=== PATIENT | female | born 1995 | race African-American/Black ===

== ENCOUNTER 2018-06-08 13:48 | Emergency (ER) | payer OTHER ==
[2018-06-08 14:19] VITALS: BP 125/86
--- NOTE | 2018-06-08 15:00 | UC ---
Skin Complaint HPI - HPI Summary HPI Summary: 4 weeks of waxing and waning rash both axilla, neck and face. Mildly pruritic, numer small papules, resulting in some hyperpigmentation in the axilla. Deoderant stings, parminder water relieves but has not faded altogether at any point. - History of Current Complaint Chief Complaint: UCSkin Time Seen by Provider: 06/08/18 14:34 Stated Complaint: SKIN CONCERN (UNDERARMS,FACE,NECK) Hx Obtained From: Patient Hx Last Menstrual Period: 05/19/18 ?: No Onset/Duration: Gradual Onset, Lasting Weeks Timing: Constant Onset Severity: Moderate Current Severity: Moderate Pain Intensity: 0 Aggravating Factor(s): Touch Alleviating Factor(s): OTC Creams/Salves Associated Signs & Symptoms: Positive: Negative - Allergy/Home Medications Allergies/Adverse Reactions: Allergies Allergy/AdvReac Type Severity Reaction Status Date / Time No Known Allergies Allergy Verified 06/08/18 14:19 Review of Systems Constitutional: Negative Skin: Rash Eyes: Negative ENT: Negative Respiratory: Negative Cardiovascular: Negative Gastrointestinal: Negative Genitourinary: Negative Motor: Negative Neurovascular: Negative Musculoskeletal: Negative Neurological: Negative Psychological: Negative Is Patient Immunocompromised?: No All Other Systems Reviewed And Are Negative: Yes PMH/Surg Hx/FS Hx/Imm Hx Previously Healthy: Yes - Surgical History Surgical History: None - Family History Known Family History: Positive: Diabetes, Other - breast cancer--mother - Social History Occupation: Student Lives: With Family Alcohol Use: None Substance Use Type: None Smoking Status (MU): Never Smoked Tobacco - Immunization History Most Recent Influenza Vaccination: FALL 2013 Vaccination Up to Date: Yes Physical Exam Triage Information Reviewed: Yes Appearance: Well-Appearing Vital Signs: Initial Vital Signs Temp 98.0 F 06/08/18 14:14 Pulse 64 06/08/18 14:14 Resp 20 06/08/18 14:14 BP 125/86 06/08/18 14:14 Pulse Ox 100 06/08/18 14:14 ENT Exam: Normal Dental Exam: Normal Neck: Positive: Supple, Nontender, No Lymphadenopathy Respiratory: Positive: Lungs clear, Normal breath sounds Cardiovascular: Positive: RRR, No Murmur Neurological Exam: Normal Skin Exam: Other - face with numerous small papules across temples, forehead, upper and lower eyelids with mild erythema under the eyes. + small follicles in nasal ala, upper lip, ++ over neck, almost confluent in axilla with some patchy hyperpigmentation Course/Dx - Course Course Of Treatment: doxy for folliculitis treatment. - Differential Diagnoses - Skin Complaint Differential Diagnoses: Contact Dermatitis, Local Allergic Reaction, Other - folliculitis - Diagnoses Provider Diagnoses: folliculitis, periorbital dermatitis Discharge - Sign-Out/Discharge Documenting (check all that apply): Patient Departure - Discharge Plan Condition: Stable Disposition: HOME Prescriptions: DOXYcycline CAP(*) [DOXYcycline 100MG CAP(*)] 100 mg PO BID #28 cap Patient Education Materials: Folliculitis (ED) Referrals: Cally Briscoe MD [Primary Care Provider] - April Martin [Medical Doctor] - Additional Instructions: Use doxycyclin 100mg twice daily for 2 weeks, being aware that you will be more prone to sunburn during that time. Ensure that you are using sun protection. The antibiotic can cause gi upset; it can be taken with food (no dairy). - Billing Disposition and Condition Condition: STABLE Disposition: Home
== END 2018-06-08 15:11 | disposition home or self-care (01) ==
LOC: UCCORT 13:48
DX: L73.9 Follicular disorder, unspecified (principal); L30.8 Other specified dermatitis
CPT/HCPCS: 99201; G0463

== ENCOUNTER 2018-06-28 12:41 | Emergency (ER) | payer OTHER ==
[2018-06-28 13:16] VITALS: BP 116/50
--- NOTE | 2018-06-28 13:40 | ED ---
Skin Complaint - HPI Summary HPI Summary: 22-year-old female with history of folliculitis recently completed 2 weeks of doxycycline presents with persistent itchiness and mild redness of axillary areas bilaterally. No pus drainage. Patient has seen improvement of other areas of skin with medication, but has persistent itchiness in the axilla. Denies any fevers, pain, or prior episodes. Denies any worsening or remitting factors. Approximately one week duration. Located in bilateral axillary areas. - History of Current Complaint Chief Complaint: UCSkin Time Seen by Provider: 06/28/18 13:17 Stated Complaint: RECHECK SKIN COMPLAINT Hx Last Menstrual Period: 06/21/18 Skin Exposure Onset/Duration: Weeks Ago Timing: Constant Onset Severity: Mild Current Severity: Mild Pain Intensity: 0 Skin Location: Other: - Bilateral axilla Character: Pruritus Aggravating Symptom(s): Nothing Alleviating Symptom(s): Nothing - Allergy/Home Medications Allergies/Adverse Reactions: Allergies Allergy/AdvReac Type Severity Reaction Status Date / Time No Known Allergies Allergy Verified 06/28/18 13:06 Home Medications: Home Medications Levonorgestrel (Iud) [Mirena IUD] 20 mcg IU 06/28/18 [History] PMH/Surg Hx/FS Hx/Imm Hx Previously Healthy: Yes Infectious Disease History: No Infectious Disease History: Denies: Traveled Outside the [place] in Last 30 Days - Family History Known Family History: Positive: Diabetes, Other - breast cancer--mother Family History: Positive family history of eczema - Social History Alcohol Use: None Substance Use Type: Reports: None Smoking Status (MU): Never Smoked Tobacco Review of Systems Positive: Other - itchiness of axilla bilaterally as noted in history of present illness All Other Systems Reviewed And Are Negative: Yes Physical Exam - Summary Physical Exam Summary: Gen: alert, in no acute distress HEENT: EOMI, normocephalic, atruamatic Neck: supple, no masses CV: Normal s1 s2, no murmurs Resp: normal breath sounds b/l GI: no tenderness, no masses Musculoskeletal: normal ROM all 4 extremities Skin: Mild erythema of axilla b/l, discrete scaly itchy patches of skin consistent with possible eczema Lymph: no lymphadenopathy Psych: appropriate affect, oriented Vital Signs On Initial Exam: Initial Vitals Temp Pulse Resp BP Pulse Ox 36.4 C 74 17 116/50 100 06/28/18 13:09 08/29/18 13:09 06/28/18 13:09 06/28/18 13:09 06/28/18 13:09 Diagnostics - Vital Signs Vital Signs Temp Pulse Resp BP Pulse Ox 06/28/18 13:09 36.4 C 74 17 116/50 100 - Laboratory Lab Statement: Any lab studies that have been ordered have been reviewed, and results considered in the medical decision making process. Course/Dx - Course Course Of Treatment: Patient has itchy scaly patches of skin possibly due to eczema, patient prescribed steroid cream and instructed to follow up with corrective therapist. Agrees to and understands discharge instructions. No evidence of infection. No evidence of hidradenitis. - Diagnoses Provider Diagnoses: Eczema Discharge - Sign-Out/Discharge Documenting (check all that apply): Patient Departure All imaging exams completed and their final reports reviewed: No Studies - Discharge Plan Condition: Stable Disposition: HOME Prescriptions: Triamcinolone 0.1% CREAM (NF) [Kenalog 0.1% Cream (NF)] 1 applic TOPICAL DAILY # 1 tube Patient Education Materials: Eczema (ED), Dermatitis (ED) Referrals: Cally Briscoe MD [Primary Care Provider] - Huan Gross JR, MD [Medical Doctor] - April Martin [Medical Doctor] - Rachael Rojo MD [Medical Doctor] - Additional Instructions: PLEASE MAKE AN APPOINTMENT TO SEE A [facility] OPERATOR WITHIN ONE WEEK. PLEASE USE MEDICATION DIRECTED. PLEASE DISCONTINUE MEDICATION IMMEDIATELY IF YOU HAVE ANY ADVERSE REACTIONS. - Billing Disposition and Condition Condition: STABLE Disposition: Home
== END 2018-06-28 13:47 | disposition home or self-care (01) ==
LOC: UCCORT 12:41
DX: L30.9 Dermatitis, unspecified (principal)
CPT/HCPCS: 99212; G0463

== ENCOUNTER 2019-06-17 19:22 | Emergency (ER) | payer OTHER ==
[2019-06-17 19:38] VITALS: BP 111/66
[2019-06-17] MEDS ORDERED: Lidocaine 1% MPF ** 5 ML VIAL INJ ONE (19:44)
--- NOTE | 2019-06-17 20:43 | UC ---
Skin Complaint HPI - HPI Summary HPI Summary: 23-year-old woman comes in with a chief complaint of lacerations to her right hand. She accidentally cut her right hand on a knife just prior to arrival. It did bleed. Bleeding was stopped with direct pressure. No weakness or numbness or loss of strength. Patient believes her tetanus is up-to-date. - History of Current Complaint Chief Complaint: UCWounds Time Seen by Provider: 06/17/19 19:39 Stated Complaint: LACERATION RIGHT HAND Hx Last Menstrual Period: 06/21/18 Pain Intensity: 0 - Allergy/Home Medications Allergies/Adverse Reactions: Allergies Allergy/AdvReac Type Severity Reaction Status Date / Time No Known Allergies Allergy Verified 06/17/19 19:38 Home Medications: Home Medications NK [No Home Medications Reported] 06/17/19 [History Confirmed 06/17/19] PMH/Surg Hx/FS Hx/Imm Hx Previously Healthy: Yes - Surgical History Surgical History: None - Family History Known Family History: Positive: Diabetes, Other - breast cancer--mother Family History: Positive family history of eczema - Social History Alcohol Use: Rare Substance Use Type: None Smoking Status (MU): Never Smoked Tobacco - Immunization History Most Recent Influenza Vaccination: FALL 2013 Most Recent Tetanus Shot: does not know Vaccination Up to Date: Yes Review of Systems All Other Systems Reviewed And Are Negative: Yes Constitutional: Positive: Negative Skin: Positive: Other - SEE HPI Eyes: Positive: Negative ENT: Positive: Negative Respiratory: Positive: Negative Cardiovascular: Positive: Negative Gastrointestinal: Positive: Negative Motor: Positive: Negative Neurovascular: Positive: Negative Musculoskeletal: Positive: Negative Neurological: Positive: Negative Psychological: Positive: Negative Is Patient Immunocompromised?: No Physical Exam Triage Information Reviewed: Yes Appearance: Well-Appearing, No Pain Distress, Well-Nourished Vital Signs: Initial Vital Signs Temp 98.0 F 06/17/19 19:33 Pulse 57 06/17/19 19:33 Resp 18 06/17/19 19:33 BP 111/66 06/17/19 19:33 Pulse Ox 100 06/17/19 19:33 Vital Signs Reviewed: Yes Eye Exam: Normal Eyes: Positive: Conjunctiva Clear Neck: Positive: Supple, Nontender Respiratory: Positive: No respiratory distress Musculoskeletal: Positive: Strength Intact, ROM Intact Neurological: Positive: Alert, Muscle Tone Normal, Other: - On the right hand fingers and wrist have full range of motion and full strength. No sensation deficit. Normal capillary refill. Psychological: Positive: Age Appropriate Behavior Skin: Positive: Other - Patient has 2 full-thickness lacerations on her right hand. There is a 3 cm laceration in the webbing between the thumb and the index finger. There is a 1.5 cm laceration on the radial aspect of the proximal index finger. There is a not full-thickness superficial laceration distal index finger also on the radial side. Upon inspection of the lacerations I do not see any tendon involvement. Laceration Repair - Laceration Repair 1 Description: Linear - RT HAND BETWEEN THUMB AND INDEX FINGER Laceration Size After Repair: Length (cm) - 3CM, Depth (mm) - SC, no tendon visible on exam. Modified For Repair: No Type Injection: Local Anesthesia Used: 1.0% Lido Irrigation With Pressure Irrigation Device: Yes Closure Material: Sutures - #7 Closure Method: Single Layer Suture Of: Skin Suture Type: Prolene - 5-0 2 Description: Linear - RIGHT INDEX FINGER Laceration Size After Repair: Length (cm) - 1.5CM, Depth (mm) - SC, no tendon visualized Modified For Repair: No Type Injection: Local Anesthesia Used: 1.0% Lido Irrigation With Pressure Irrigation Device: Yes Closure Material: Sutures - #2 Closure Method: Single Layer Suture Of: Skin Suture Type: Prolene - 5-0 Course/Dx - Course Course Of Treatment: Patient reports she believes she is up-to-date with tetanus and she'll check with her doctor to confirm that. Sutures out in 8-10 days. No evidence of tendon involvement at this time hand had full range of motion full-strength normal sensation normal capillary refill. The wound was clean and therefore no antibiotic prophylaxis at this time. Patient will need follow-up with any signs of infection or weakness or numbness or any other concerns. - Diagnoses Provider Diagnosis: Laceration of right hand Discharge - Sign-Out/Discharge Documenting (check all that apply): Patient Departure All imaging exams completed and their final reports reviewed: No Studies - Discharge Plan Condition: Stable Disposition: HOME Patient Education Materials: Care For Your Stitches (ED), Laceration (ED) Referrals: [facility] [Outside] Additional Instructions: FOLLOW UP WITH YOUR DOCTOR. CHECK TO MAKE SURE YOUR TETANUS IMMUNIZATION IS UP TO DATE. SUTURES OUT IN 8-10 DAYS. GET REEVALUATED SOONER IF WORSE; PAIN, WEAKNESS, NUMBNESS, SIGNS OF INFECTION OR ANY QUESTIONS OR CONCERNS. - Billing Disposition and Condition Condition: STABLE Disposition: Home
== END 2019-06-17 20:54 | disposition home or self-care (01) ==
LOC: UCCORT 19:22
DX: S61.411A Laceration without foreign body of right hand, initial encounter (principal); W26.0XXA Contact with knife, initial encounter; Y92.9 Unspecified place or not applicable
CPT/HCPCS: 12002; 99212; G0463